=== PATIENT | male | born 1975 | race Caucasian/White ===

== ENCOUNTER 2022-06-24 07:24 | Day surgery (SDC) | payer BC ==
[~2022-06-24 07:24] MED LIST: Dextrose 5%-0.45% NaCl 1,000 ML IV SCH; Sodium Chloride 0.9% 10 ML Syringe FLUSH PRN; Sodium Chloride 0.9% 10 ML Syringe FLUSH SCH
[2022-06-24] MEDS ORDERED: fentaNYL 100 MCG/2 ML SDV IV ONE ×3 (07:25→08:57)
[2022-06-24] MEDS ORDERED: Midazolam 1 MG/ML 2 ML SDV IV ONE ×3 (07:25→08:58)
[2022-06-24] MEDS ORDERED: Midazolam 1 MG/ML 2 ML SDV ONE (08:51)
[2022-06-24] MEDS ORDERED: fentaNYL 100 MCG/2 ML SDV ONE (08:51)
== END 2022-06-24 10:35 | disposition home or self-care (01) ==
LOC: DL.ENDO 07:24
PROVIDERS: ATTEND Internal Medicine Gastroenterology
DX: D64.9 Anemia, unspecified (principal); K44.9 Diaphragmatic hernia without obstruction or gangrene; E66.09 Other obesity due to excess calories; I10 Essential (primary) hypertension; F32.A Depression, unspecified; E83.119 Hemochromatosis, unspecified; K92.2 Gastrointestinal hemorrhage, unspecified; Z88.8 Allergy status to other drugs, medicaments and biological substances; Z98.890 Other specified postprocedural states; Z68.36 Body mass index [BMI] 36.0-36.9, adult
CPT/HCPCS: 87077; J2250; J3010; J7042

== ENCOUNTER 2022-06-28 05:27 | Day surgery (SDC) | payer BC ==
[~2022-06-28 05:27] MED LIST changes: -Dextrose 5%-0.45% NaCl 1,000 ML IV SCH; -Sodium Chloride 0.9% 10 ML Syringe FLUSH PRN
[2022-06-28] MEDS ORDERED: fentaNYL 100 MCG/2 ML SDV IV ONE (05:28)
[2022-06-28] MEDS ORDERED: Midazolam 1 MG/ML 2 ML SDV IV ONE (05:28)
[2022-06-28] MEDS ORDERED: Sodium Chloride 0.9% 10 ML Syringe FLUSH PRN (05:30)
[2022-06-28] MEDS: Dextrose 5%-0.45% NaCl 1,000 ML IV SCH (05:57)
[2022-06-28] MEDS ORDERED: fentaNYL 100 MCG/2 ML SDV ONE (06:09)
[2022-06-28] MEDS ORDERED: Midazolam 1 MG/ML 2 ML SDV ONE (06:09)
[2022-06-28] MEDS: fentaNYL 100 MCG/2 ML SDV IV ONE ×6 (06:31→06:40)
[2022-06-28] MEDS: Midazolam 1 MG/ML 2 ML SDV IV ONE ×6 (06:32→06:35)
[2022-06-28 09:02] VITALS: BP 141/80; PULSE 86
== END 2022-06-28 08:40 | disposition home or self-care (01) ==
LOC: DL.ENDO 05:27
PROVIDERS: ATTEND Internal Medicine Gastroenterology
DX: K57.30 Diverticulosis of large intestine without perforation or abscess without bleeding (principal); K64.8 Other hemorrhoids; D64.9 Anemia, unspecified; E66.09 Other obesity due to excess calories; F32.A Depression, unspecified; I10 Essential (primary) hypertension; F10.20 Alcohol dependence, uncomplicated; F17.200 Nicotine dependence, unspecified, uncomplicated; E83.119 Hemochromatosis, unspecified; Z68.36 Body mass index [BMI] 36.0-36.9, adult; Z98.890 Other specified postprocedural states
CPT/HCPCS: J2250; J3010; J7042

== ENCOUNTER 2023-11-06 13:46 | Emergency (ER) | payer BC ==
[2023-11-06 14:26] LABS: BASOPHILS PERCENT AUTO 0.8 % (0.0-1.0); EOSINOPHILS PERCENT AUTO 0.3 % (1.0-3.0); HEMATOCRIT 43.7 % (40.0-54.0); HEMOGLOBIN 15.7 g/dL (14.0-18.0); LYMPHOCYTES PERCENT AUTO 33.5 % (20.5-50.1); MEAN CORPUSCULAR HEMOGLOBIN 29.6 pg (27.0-34.0); MEAN CORPUSCULAR HGB CONC 35.9 g/dL (33.0-35.0); MEAN CORPUSCULAR VOLUME 82.3 fL (80-100); MONOCYTES PERCENT AUTO 7.6 % (2-8); NEUTROPHILS PERCENT AUTO 57.8 % (42.2-75.2); PLATELET COUNT,PLT 190 10^3/uL (150-450); RED BLOOD CELL COUNT 5.31 10^6/uL (4.6-6.2); WHITE BLOOD CELL COUNT,WBC 6.5 10^3/uL (5.0-10.0)
[2023-11-06 14:46] LABS: INR 1.1 (0.9-1.2); PROTHROMBIN TIME 11.5 SEC (9.0-12.0)
[2023-11-06 14:55] LABS: A/G RATIO 1.3; ALBUMIN 4.5 g/dL (3.4-5.0); ANION GAP 24.7 mEq/L (7-13); BILIRUBIN TOTAL 1.1 mg/dL (0.2-1.0); BUN/CREATININE RATIO 10.8 (No establ ref range); CALCIUM 8.9 mg/dL (8.5-10.1); CREATININE 1.2 mg/dL (0.70-1.30); EST CRCL DRUG DOSING (CG) 78.44 mL/min; MAGNESIUM 1.5 mg/dL (1.8-2.4); POTASSIUM,K 3.7 mmol/L (3.5-5.1); TSH ULTRASENSITIVE 2.18 uIU/mL (0.36-3.74)
[2023-11-06 15:01] LABS: APPEARANCE,URINE CLEAR (CLEAR); BILIRUBIN,URINE NEGATIVE (NEGATIVE); COLOR,URINE DARK YELLOW (YELLOW); GLUCOSE,URINE NEGATIVE (NEGATIVE); KETONES,URINE >=160 (NEGATIVE); LEUKOCYTE ESTERASE,URINE NEGATIVE (NEGATIVE); NITRITE,URINE NEGATIVE (NEGATIVE); OCCULT BLOOD,URINE MODERATE (NEGATIVE); PROTEIN,URINE 100 (NEGATIVE); UROBILINOGEN,URINE 0.2 mg/dL (0.2-1.0)
[2023-11-06 15:02] LABS: AMPHETAMINES,URINE NEGATIVE (NEGATIVE); BARBITURATES,URINE NEGATIVE (NEGATIVE); BENZODIAZEPINE,URINE NEGATIVE (NEGATIVE); MDMA (ECSTASY), URINE NEGATIVE (NEGATIVE); METHADONE,URINE NEGATIVE (NEGATIVE); METHAMPHETAMINES,URINE NEGATIVE (NEGATIVE); OPIATES,URINE NEGATIVE (NEGATIVE); OXYCODONE,URINE NEGATIVE (NEGATIVE); PHENCYCLIDINE,URINE NEGATIVE (NEGATIVE); TCA,URINE NEGATIVE (NEGATIVE)
[2023-11-06] MEDS: Magnesium Oxide 400 MG Tab PO ONE (15:16)
[2023-11-06 15:20] LABS: EPITHELIAL CELLS,URINE RARE /HPF (NOT SEEN); FINE GRANULAR CASTS,URINE FEW /LPF (NOT SEEN)
[2023-11-06] MEDS: Losartan 25 MG Tab PO ONE (15:20)
[2023-11-06 15:21] LABS: AMORPHOUS SEDIMENT,URINE FEW /HPF (NOT SEEN); BACTERIA,URINE RARE /HPF (0-FEW/HPF)
[2023-11-06 15:22] LABS: MUCUS,URINE FEW /LPF (NOT SEEN); RBC,URINE 0-5 /HPF (0-5); WBC,URINE 0-5 /HPF (0-5/HPF)
[2023-11-06] MEDS: Nicotine 21 MG/24 Hr Patch TRDERM ONE (15:39)
== END 2023-11-06 16:30 | disposition home or self-care (01) ==
LOC: DL.ED 13:46
DX: F10.129 Alcohol abuse with intoxication, unspecified (principal); I10 Essential (primary) hypertension; K21.9 Gastro-esophageal reflux disease without esophagitis; E66.9 Obesity, unspecified; Z79.899 Other long term (current) drug therapy; Z88.8 Allergy status to other drugs, medicaments and biological substances; Y90.8 Blood alcohol level of 240 mg/100 ml or more
CPT/HCPCS: 36415; 80053; 80143; 80179; 80305; 80307; 81001; 83735; 84443; 85025; 85610; 87635; 96372; 99284; A9270; J3360; U0002

== ENCOUNTER 2024-01-02 13:24 | Emergency (ER) | payer BC, OTHER ==
[2024-01-02 13:45] LABS: APPEARANCE,URINE CLEAR (CLEAR); BILIRUBIN,URINE NEGATIVE (NEGATIVE); COLOR,URINE YELLOW (YELLOW); GLUCOSE,URINE NEGATIVE (NEGATIVE); KETONES,URINE NEGATIVE (NEGATIVE); LEUKOCYTE ESTERASE,URINE NEGATIVE (NEGATIVE); NITRITE,URINE NEGATIVE (NEGATIVE); OCCULT BLOOD,URINE TRACE-INTACT (NEGATIVE); PH,URINE 6.5 (5.0-9.0); PROTEIN,URINE NEGATIVE (NEGATIVE); UROBILINOGEN,URINE 0.2 mg/dL (0.2-1.0)
[2024-01-02 13:50] LABS: AMPHETAMINES,URINE NEGATIVE (NEGATIVE); BARBITURATES,URINE NEGATIVE (NEGATIVE); BENZODIAZEPINE,URINE NEGATIVE (NEGATIVE); MDMA (ECSTASY), URINE NEGATIVE (NEGATIVE); METHADONE,URINE NEGATIVE (NEGATIVE); METHAMPHETAMINES,URINE NEGATIVE (NEGATIVE); OPIATES,URINE NEGATIVE (NEGATIVE); OXYCODONE,URINE NEGATIVE (NEGATIVE); PHENCYCLIDINE,URINE NEGATIVE (NEGATIVE); TCA,URINE NEGATIVE (NEGATIVE)
[2024-01-02 13:55] LABS: AMORPHOUS SEDIMENT,URINE RARE /HPF (NOT SEEN); BACTERIA,URINE RARE /HPF (0-FEW/HPF); EPITHELIAL CELLS,URINE NOT SEEN /HPF (NOT SEEN); MUCUS,URINE RARE /LPF (NOT SEEN); RBC,URINE 0-5 /HPF (0-5); WBC,URINE 0-5 /HPF (0-5/HPF)
[2024-01-02 14:26] LABS: BASOPHILS PERCENT AUTO 0.6 % (0.0-1.0); HEMATOCRIT 42.1 % (40.0-54.0); HEMOGLOBIN 14.6 g/dL (14.0-18.0); LYMPHOCYTES PERCENT AUTO 37.6 % (20.5-50.1); MEAN CORPUSCULAR HEMOGLOBIN 30.7 pg (27.0-34.0); MEAN CORPUSCULAR HGB CONC 34.7 g/dL (33.0-35.0); MEAN CORPUSCULAR VOLUME 88.4 fL (80-100); MONOCYTES PERCENT AUTO 15.4 % (2-8); NEUTROPHILS PERCENT AUTO 45.4 % (42.2-75.2); PLATELET COUNT,PLT 80 10^3/uL (150-450); RED BLOOD CELL COUNT 4.76 10^6/uL (4.6-6.2); WHITE BLOOD CELL COUNT,WBC 3.1 10^3/uL (5.0-10.0)
[2024-01-02 14:55] LABS: A/G RATIO 1.1; ALBUMIN 4.3 g/dL (3.4-5.0); ANION GAP 14.8 mEq/L (7-13); BILIRUBIN TOTAL 1.2 mg/dL (0.2-1.0); CALCIUM 9.7 mg/dL (8.5-10.1); CREATININE 0.83 mg/dL (0.70-1.30); EST CRCL DRUG DOSING (CG) 113.4 mL/min; MAGNESIUM 1.3 mg/dL (1.8-2.4); POTASSIUM,K 3.8 mmol/L (3.5-5.1); PROTEIN TOTAL,TP 8.1 g/dL (6.4-8.2)
[2024-01-02 15:06] LABS: INR 1.1 (0.9-1.2); PROTHROMBIN TIME 11.7 SEC (9.0-12.0)
[2024-01-02] MEDS ORDERED: Magnesium Oxide 400 MG Tab ONE (15:22)
[2024-01-02] MEDS: Magnesium Oxide 400 MG Tab PO ONE (15:23)
== END 2024-01-02 16:11 | disposition left against medical advice (07) ==
LOC: DL.ED 13:24
DX: F10.129 Alcohol abuse with intoxication, unspecified (principal); I10 Essential (primary) hypertension; K21.9 Gastro-esophageal reflux disease without esophagitis; E66.9 Obesity, unspecified; F17.210 Nicotine dependence, cigarettes, uncomplicated; Z88.8 Allergy status to other drugs, medicaments and biological substances; Z79.899 Other long term (current) drug therapy; Z68.41 Body mass index [BMI] 40.0-44.9, adult
CPT/HCPCS: 36415; 80053; 80143; 80179; 80305-QW; 80307; 81001; 83735; 85025; 85610; 99283; A9270-GY

== ENCOUNTER 2024-01-14 14:13 | Inpatient (IN) | payer MEDICAID ==
[2024-01-14 15:35] LABS: BASOPHILS PERCENT AUTO 1.7 % (0.0-1.0); HEMATOCRIT 43.5 % (40.0-54.0); HEMOGLOBIN 14.7 g/dL (14.0-18.0); LYMPHOCYTES PERCENT AUTO 43.2 % (20.5-50.1); MEAN CORPUSCULAR HEMOGLOBIN 30.4 pg (27.0-34.0); MEAN CORPUSCULAR HGB CONC 33.8 g/dL (33.0-35.0); MEAN CORPUSCULAR VOLUME 90.1 fL (80-100); MONOCYTES PERCENT AUTO 13.5 % (2-8); NEUTROPHILS PERCENT AUTO 40.6 % (42.2-75.2); PLATELET COUNT,PLT 122 10^3/uL (150-450); RED BLOOD CELL COUNT 4.83 10^6/uL (4.6-6.2)
[2024-01-14 15:40] LABS: APPEARANCE,URINE CLEAR (CLEAR); BILIRUBIN,URINE NEGATIVE (NEGATIVE); COLOR,URINE YELLOW (YELLOW); GLUCOSE,URINE NEGATIVE (NEGATIVE); KETONES,URINE NEGATIVE (NEGATIVE); LEUKOCYTE ESTERASE,URINE NEGATIVE (NEGATIVE); NITRITE,URINE NEGATIVE (NEGATIVE); OCCULT BLOOD,URINE TRACE-INTACT (NEGATIVE); PH,URINE 5.5 (5.0-9.0); PROTEIN,URINE 30 (NEGATIVE)
[2024-01-14 15:48] LABS: AMORPHOUS SEDIMENT,URINE RARE /HPF (NOT SEEN); BACTERIA,URINE RARE /HPF (0-FEW/HPF); EPITHELIAL CELLS,URINE NOT SEEN /HPF (NOT SEEN); MUCUS,URINE RARE /LPF (NOT SEEN); RBC,URINE 0-5 /HPF (0-5); WBC,URINE 0-5 /HPF (0-5/HPF)
[2024-01-14 15:51] LABS: AMPHETAMINES,URINE NEGATIVE (NEGATIVE); BARBITURATES,URINE NEGATIVE (NEGATIVE); BENZODIAZEPINE,URINE NEGATIVE (NEGATIVE); MDMA (ECSTASY), URINE NEGATIVE (NEGATIVE); METHADONE,URINE NEGATIVE (NEGATIVE); METHAMPHETAMINES,URINE NEGATIVE (NEGATIVE); OPIATES,URINE NEGATIVE (NEGATIVE); OXYCODONE,URINE NEGATIVE (NEGATIVE); PHENCYCLIDINE,URINE NEGATIVE (NEGATIVE); TCA,URINE NEGATIVE (NEGATIVE)
[2024-01-14 15:56] LABS: INR 1.1 (0.9-1.2); PROTHROMBIN TIME 11.5 SEC (9.0-12.0); PTT,PARTIAL THROMBOPLSTIN TIME 25.6 SEC (22.0-34.0)
[2024-01-14 15:59] LABS: A/G RATIO 1.1; ALBUMIN 4.1 g/dL (3.4-5.0); ANION GAP 17.7 mEq/L (7-13); BUN/CREATININE RATIO 11.2 (No establ ref range); CALCIUM 9.3 mg/dL (8.5-10.1); CREATININE 0.89 mg/dL (0.70-1.30); EST CRCL DRUG DOSING (CG) 108.99 mL/min; MAGNESIUM 1.7 mg/dL (1.8-2.4); POTASSIUM,K 4.7 mmol/L (3.5-5.1)
[2024-01-14] MEDS: Thiamine 200 MG/2 ML MDV IVPUSH ONE (16:37)
[2024-01-14] MEDS: LORazepam 2 MG/ML SDV IVPUSH ONE ×2 (16:47→19:40)
[2024-01-14] MEDS: Magnesium Sulfate/Water 2 GM in Premix Bag 1 BAG IV ONE (16:48)
[2024-01-14] MEDS: Sodium Chloride 0.9% 1,000 ML IV ONE (16:48)
[2024-01-14] MEDS: Sodium Chloride 0.9% 10 ML Syringe FLUSH PRN (16:52)
[2024-01-14] MEDS ORDERED: Docusate Sodium 100 MG Cap PO PRN (17:39)
[2024-01-14] MEDS: Enoxaparin 40 MG/0.4 ML Syringe SUBCUT SCH (18:02)
[2024-01-14] MEDS: hydrALAZINE 20 MG/ML SDV IVPUSH PRN (18:15)
[2024-01-14] MEDS: MVI, Adult with Vitamin K 10 ML, Folic Acid 1 MG, Thiamine 100 MG in Lactated Ringers 1... IV SCH ×2 (19:32→19:43)
[2024-01-14] MEDS: Ziprasidone Mesylate 20 MG Vial IM ONE (19:42)
[2024-01-14] MEDS: Pantoprazole 40 MG Vial IVPUSH SCH (20:04)
[2024-01-14] MEDS: Ziprasidone Mesylate 20 MG Vial ONE (20:05)
[2024-01-14] MEDS: LORazepam 2 MG/ML SDV ONE (20:05)
[2024-01-14] MEDS: Acetaminophen 500 MG Tab PO PRN (20:05)
[2024-01-15] MEDS: Ondansetron 4 MG/2 ML SDV IVPUSH PRN (01:13)
[2024-01-15] MEDS: LORazepam 2 MG/ML SDV IVPUSH PRN ×3 (04:53→20:02)
[2024-01-15] MEDS: LORazepam 2 MG/ML SDV ONE (04:55)
[2024-01-15 06:35] LABS: BASOPHILS PERCENT AUTO 0.3 % (0.0-1.0); EOSINOPHILS PERCENT AUTO 0.3 % (1.0-3.0); HEMOGLOBIN 13.2 g/dL (14.0-18.0); LYMPHOCYTES PERCENT AUTO 22.9 % (20.5-50.1); MEAN CORPUSCULAR HEMOGLOBIN 29.9 pg (27.0-34.0); MEAN CORPUSCULAR VOLUME 90.5 fL (80-100); MONOCYTES PERCENT AUTO 18.5 % (2-8); PLATELET COUNT,PLT 91 10^3/uL (150-450); RED BLOOD CELL COUNT 4.42 10^6/uL (4.6-6.2); WHITE BLOOD CELL COUNT,WBC 3.1 10^3/uL (5.0-10.0)
[2024-01-15 06:56] LABS: A/G RATIO 1.1; ALBUMIN 3.8 g/dL (3.4-5.0); ANION GAP 15.9 mEq/L (7-13); BILIRUBIN TOTAL 1.4 mg/dL (0.2-1.0); BUN/CREATININE RATIO 12.7 (No establ ref range); CALCIUM 8.8 mg/dL (8.5-10.1); CREATININE 0.79 mg/dL (0.70-1.30); EST CRCL DRUG DOSING (CG) 122.78 mL/min; POTASSIUM,K 3.9 mmol/L (3.5-5.1); PROTEIN TOTAL,TP 7.2 g/dL (6.4-8.2)
[2024-01-15] MEDS ORDERED: hydrALAZINE 20 MG/ML SDV IVPUSH PRN (09:16)
[2024-01-15] MEDS: Losartan 50 MG Tab PO SCH (10:01)
[2024-01-15] MEDS: Famotidine 20 MG Tab PO SCH (10:02)
[2024-01-15] MEDS: Nicotine 7 MG/24 Hr Patch TRDERM SCH (12:26)
[2024-01-15] MEDS: Ziprasidone Mesylate 20 MG Vial IM PRN (13:40)
[2024-01-15] MEDS: traZODone 50 MG Tab PO SCH (20:03)
[2024-01-15] MEDS: Check Patch TRDERM SCH (21:57)
[2024-01-16 06:10] LABS: BASOPHILS PERCENT AUTO 0.3 % (0.0-1.0); EOSINOPHILS PERCENT AUTO 0.3 % (1.0-3.0); HEMATOCRIT 42.5 % (40.0-54.0); HEMOGLOBIN 14.6 g/dL (14.0-18.0); LYMPHOCYTES PERCENT AUTO 38.6 % (20.5-50.1); MEAN CORPUSCULAR HEMOGLOBIN 30.5 pg (27.0-34.0); MEAN CORPUSCULAR HGB CONC 34.4 g/dL (33.0-35.0); MEAN CORPUSCULAR VOLUME 88.7 fL (80-100); MONOCYTES PERCENT AUTO 19.1 % (2-8); NEUTROPHILS PERCENT AUTO 41.7 % (42.2-75.2); PLATELET COUNT,PLT 77 10^3/uL (150-450); RED BLOOD CELL COUNT 4.79 10^6/uL (4.6-6.2)
[2024-01-16 06:31] LABS: A/G RATIO 1.1; ALBUMIN 4.1 g/dL (3.4-5.0); ANION GAP 19.2 mEq/L (7-13); BILIRUBIN TOTAL 2.2 mg/dL (0.2-1.0); BUN/CREATININE RATIO 10.1 (No establ ref range); CALCIUM 9.7 mg/dL (8.5-10.1); CREATININE 0.89 mg/dL (0.70-1.30); EST CRCL DRUG DOSING (CG) 108.99 mL/min; POTASSIUM,K 4.2 mmol/L (3.5-5.1); PROTEIN TOTAL,TP 7.9 g/dL (6.4-8.2)
[2024-01-16] MEDS: Escitalopram 10 MG Tab PO SCH (10:37)
[2024-01-16] MEDS: hydrOXYzine HCl 25 MG Tab PO PRN (11:51)
[2024-01-16] MEDS: Gabapentin 100 MG Cap PO SCH (12:31)
[2024-01-16] MEDS ORDERED: LORazepam 2 MG/ML SDV IVPUSH PRN (12:53)
[2024-01-16] MEDS: chlordiazePOXIDE 10 MG Cap PO SCH (13:03)
[2024-01-16] MEDS: LORazepam 2 MG/ML SDV IVPUSH PRN (17:18)
[2024-01-17 06:33] LABS: BASOPHILS PERCENT AUTO 0.7 % (0.0-1.0); EOSINOPHILS PERCENT AUTO 1.5 % (1.0-3.0); HEMATOCRIT 41.5 % (40.0-54.0); HEMOGLOBIN 13.9 g/dL (14.0-18.0); LYMPHOCYTES PERCENT AUTO 28.6 % (20.5-50.1); MEAN CORPUSCULAR HEMOGLOBIN 30.3 pg (27.0-34.0); MEAN CORPUSCULAR HGB CONC 33.5 g/dL (33.0-35.0); MEAN CORPUSCULAR VOLUME 90.4 fL (80-100); MONOCYTES PERCENT AUTO 19.4 % (2-8); NEUTROPHILS PERCENT AUTO 49.8 % (42.2-75.2); PLATELET COUNT,PLT 89 10^3/uL (150-450); RED BLOOD CELL COUNT 4.59 10^6/uL (4.6-6.2); WHITE BLOOD CELL COUNT,WBC 2.7 10^3/uL (5.0-10.0)
[2024-01-17 07:00] LABS: A/G RATIO 1.1; ALBUMIN 3.7 g/dL (3.4-5.0); ANION GAP 15.9 mEq/L (7-13); BILIRUBIN TOTAL 1.8 mg/dL (0.2-1.0); BUN/CREATININE RATIO 14.5 (No establ ref range); CALCIUM 9.5 mg/dL (8.5-10.1); CREATININE 0.83 mg/dL (0.70-1.30); EST CRCL DRUG DOSING (CG) 116.87 mL/min; POTASSIUM,K 3.9 mmol/L (3.5-5.1); PROTEIN TOTAL,TP 7.2 g/dL (6.4-8.2)
[2024-01-17] MEDS: Gabapentin 300 MG Cap PO SCH (08:50)
[2024-01-18 06:25] LABS: BASOPHILS PERCENT AUTO 0.6 % (0.0-1.0); EOSINOPHILS PERCENT AUTO 1.5 % (1.0-3.0); HEMATOCRIT 40.2 % (40.0-54.0); HEMOGLOBIN 13.4 g/dL (14.0-18.0); MEAN CORPUSCULAR HEMOGLOBIN 30.4 pg (27.0-34.0); MEAN CORPUSCULAR HGB CONC 33.3 g/dL (33.0-35.0); MEAN CORPUSCULAR VOLUME 91.2 fL (80-100); MONOCYTES PERCENT AUTO 22.4 % (2-8); NEUTROPHILS PERCENT AUTO 49.5 % (42.2-75.2); PLATELET COUNT,PLT 86 10^3/uL (150-450); RED BLOOD CELL COUNT 4.41 10^6/uL (4.6-6.2); WHITE BLOOD CELL COUNT,WBC 3.3 10^3/uL (5.0-10.0)
[2024-01-18 06:48] LABS: A/G RATIO 1.1; ALBUMIN 3.5 g/dL (3.4-5.0); ANION GAP 13.8 mEq/L (7-13); BILIRUBIN TOTAL 1.6 mg/dL (0.2-1.0); BUN/CREATININE RATIO 20.7 (No establ ref range); CALCIUM 9.3 mg/dL (8.5-10.1); CREATININE 0.87 mg/dL (0.70-1.30); EST CRCL DRUG DOSING (CG) 111.49 mL/min; POTASSIUM,K 3.8 mmol/L (3.5-5.1); PROTEIN TOTAL,TP 6.8 g/dL (6.4-8.2)
[2024-01-18] MEDS: Nicotine 21 MG/24 Hr Patch TRDERM SCH (09:16)
[2024-01-19 06:23] LABS: BASOPHILS PERCENT AUTO 0.7 % (0.0-1.0); EOSINOPHILS PERCENT AUTO 1.4 % (1.0-3.0); HEMOGLOBIN 13.5 g/dL (14.0-18.0); LYMPHOCYTES PERCENT AUTO 28.4 % (20.5-50.1); MEAN CORPUSCULAR HEMOGLOBIN 30.2 pg (27.0-34.0); MEAN CORPUSCULAR HGB CONC 32.9 g/dL (33.0-35.0); MEAN CORPUSCULAR VOLUME 91.7 fL (80-100); MONOCYTES PERCENT AUTO 23.9 % (2-8); NEUTROPHILS PERCENT AUTO 45.6 % (42.2-75.2); PLATELET COUNT,PLT 90 10^3/uL (150-450); RED BLOOD CELL COUNT 4.47 10^6/uL (4.6-6.2); WHITE BLOOD CELL COUNT,WBC 2.9 10^3/uL (5.0-10.0)
[2024-01-19 06:43] LABS: ALBUMIN 3.6 g/dL (3.4-5.0); ANION GAP 12.7 mEq/L (7-13); BILIRUBIN TOTAL 1.4 mg/dL (0.2-1.0); BUN/CREATININE RATIO 18.3 (No establ ref range); CALCIUM 9.4 mg/dL (8.5-10.1); CREATININE 0.82 mg/dL (0.70-1.30); EST CRCL DRUG DOSING (CG) 118.29 mL/min; POTASSIUM,K 4.7 mmol/L (3.5-5.1); PROTEIN TOTAL,TP 7.2 g/dL (6.4-8.2)
[2024-01-20 06:22] LABS: HEMATOCRIT 41.6 % (40.0-54.0); HEMOGLOBIN 13.9 g/dL (14.0-18.0); MEAN CORPUSCULAR HEMOGLOBIN 30.8 pg (27.0-34.0); MEAN CORPUSCULAR HGB CONC 33.4 g/dL (33.0-35.0); PLATELET COUNT,PLT 95 10^3/uL (150-450); RED BLOOD CELL COUNT 4.52 10^6/uL (4.6-6.2); WHITE BLOOD CELL COUNT,WBC 3.2 10^3/uL (5.0-10.0)
[2024-01-20 06:27] LABS: BASOPHILS PERCENT AUTO 0.6 % (0.0-1.0); EOSINOPHILS PERCENT AUTO 2.5 % (1.0-3.0); LYMPHOCYTES PERCENT AUTO 26.2 % (20.5-50.1); MONOCYTES PERCENT AUTO 24.3 % (2-8); NEUTROPHILS PERCENT AUTO 46.4 % (42.2-75.2)
[2024-01-20 06:45] LABS: ALBUMIN 3.6 g/dL (3.4-5.0); ANION GAP 13.8 mEq/L (7-13); BILIRUBIN TOTAL 1.2 mg/dL (0.2-1.0); BUN/CREATININE RATIO 18.4 (No establ ref range); CALCIUM 9.1 mg/dL (8.5-10.1); CREATININE 0.87 mg/dL (0.70-1.30); EST CRCL DRUG DOSING (CG) 111.49 mL/min; POTASSIUM,K 3.8 mmol/L (3.5-5.1); PROTEIN TOTAL,TP 7.1 g/dL (6.4-8.2)
[2024-01-21] MEDS ORDERED: Omeprazole 20 MG Cap.CR PO SCH (10:30)
[2024-01-21] MEDS: hydrOXYzine HCl 25 MG Tab PO SCH (21:07)
[2024-01-22] MEDS: Omeprazole 20 MG Cap.CR PO SCH (06:07)
== END 2024-01-22 10:40 | disposition home or self-care (01) | DRG 897 ==
LOC: DL.ED 14:13 → DL.MS 16:35 → DL.ED 17:09
PROVIDERS: ADMIT Internal Medicine; ATTEND Internal Medicine
DX: F10.130 Alcohol abuse with withdrawal, uncomplicated (principal); I10 Essential (primary) hypertension; Z68.39 Body mass index [BMI] 39.0-39.9, adult; Z98.52 Vasectomy status; H54.7 Unspecified visual loss; F10.120 Alcohol abuse with intoxication, uncomplicated; E66.9 Obesity, unspecified; F32.A Depression, unspecified; K21.9 Gastro-esophageal reflux disease without esophagitis; F41.9 Anxiety disorder, unspecified; D64.9 Anemia, unspecified; M54.50 Low back pain, unspecified; M25.511 Pain in right shoulder; Z88.8 Allergy status to other drugs, medicaments and biological substances; Z79.899 Other long term (current) drug therapy; Z98.890 Other specified postprocedural states
CPT/HCPCS: 36415; 71046; 80053; 80143; 80179; 80305-QW; 80307; 81001; 82150; 83690; 83735; 84443; 85025; 85610; 85730; 93005; 93010; 99284; 99285; A9270-GY; J0360; J1650; J2060; J2405; J2470; J3411; J3475; J3486; J3490; J7030; J7120

== ENCOUNTER 2024-02-05 20:50 | Emergency (ER) | payer MEDICAID ==
[2024-02-05] MEDS ORDERED: Sodium Chloride 0.9% 10 ML Syringe FLUSH PRN (20:59)
[2024-02-05 21:16] LABS: BASOPHILS PERCENT AUTO 0.5 % (0.0-1.0); EOSINOPHILS PERCENT AUTO 0.9 % (1.0-3.0); HEMATOCRIT 45.1 % (40.0-54.0); HEMOGLOBIN 15.5 g/dL (14.0-18.0); MEAN CORPUSCULAR HEMOGLOBIN 30.1 pg (27.0-34.0); MEAN CORPUSCULAR HGB CONC 34.4 g/dL (33.0-35.0); MEAN CORPUSCULAR VOLUME 87.6 fL (80-100); MONOCYTES PERCENT AUTO 11.5 % (2-8); NEUTROPHILS PERCENT AUTO 45.1 % (42.2-75.2); PLATELET COUNT,PLT 221 10^3/uL (150-450); RED BLOOD CELL COUNT 5.15 10^6/uL (4.6-6.2); WHITE BLOOD CELL COUNT,WBC 7.4 10^3/uL (5.0-10.0)
[2024-02-05] MEDS: MVI, Adult with Vitamin K 10 ML, Folic Acid 1 MG, Thiamine 100 MG in Lactated Ringers 1... IV ONE (21:24)
[2024-02-05 21:35] LABS: A/G RATIO 1.1; ALANINE AMINOTRANSFERASE,ALT 64 U/L (16-63); ALBUMIN 4.2 g/dL (3.4-5.0); ALKALINE PHOSPHATASE 76 U/L (46-116); ANION GAP 15.6 mEq/L (7-13); ASPARTATE AMNIOTRANSFERASE,AST 110 U/L (15-37); BILIRUBIN TOTAL 0.7 mg/dL (0.2-1.0); BLOOD UREA NITROGEN,BUN 8 mg/dL (7-18); BUN/CREATININE RATIO 7.5 (No establ ref range); CALCIUM 9.4 mg/dL (8.5-10.1); CARBON DIOXIDE,CO2 26 mmol/L (21-32); CHLORIDE,CL 104 mmol/L (98-107); CREATININE 1.07 mg/dL (0.70-1.30); GLUCOSE RANDOM 131 mg/dL (70-99); MAGNESIUM 1.7 mg/dL (1.8-2.4); POTASSIUM,K 3.6 mmol/L (3.5-5.1); PROTEIN TOTAL,TP 8.1 g/dL (6.4-8.2); SODIUM,NA 142 mmol/L (136-145)
[2024-02-05 21:47] LABS: ESTIMATED GFR 85 mL/min (>=60); ETHANOL BLOOD MEDICAL 340 mg/dL (0)
== END 2024-02-05 22:31 | disposition home or self-care (01) ==
LOC: DL.ED 20:50
DX: F10.29 Alcohol dependence with unspecified alcohol-induced disorder (principal); I10 Essential (primary) hypertension; K21.9 Gastro-esophageal reflux disease without esophagitis; E66.9 Obesity, unspecified; Z79.899 Other long term (current) drug therapy; Z88.8 Allergy status to other drugs, medicaments and biological substances
CPT/HCPCS: 36415; 80053; 80307; 83735; 85025; 96365; 99284; 99284-25; J3411; J3490; J7120

== ENCOUNTER 2024-03-27 00:37 | Emergency (ER) | payer MEDICAID ==
[2024-03-27 01:38] LABS: BASOPHILS PERCENT AUTO 0.4 % (0.0-1.0); EOSINOPHILS PERCENT AUTO 0.2 % (1.0-3.0); HEMATOCRIT 39.8 % (40.0-54.0); LYMPHOCYTES PERCENT AUTO 30.8 % (20.5-50.1); MEAN CORPUSCULAR HEMOGLOBIN 30.4 pg (27.0-34.0); MEAN CORPUSCULAR HGB CONC 35.2 g/dL (33.0-35.0); MEAN CORPUSCULAR VOLUME 86.5 fL (80-100); MONOCYTES PERCENT AUTO 8.9 % (2-8); NEUTROPHILS PERCENT AUTO 59.7 % (42.2-75.2); PLATELET COUNT,PLT 109 10^3/uL (150-450); WHITE BLOOD CELL COUNT,WBC 5.1 10^3/uL (5.0-10.0)
[2024-03-27] MEDS: MVI, Adult with Vitamin K 10 ML, Folic Acid 1 MG, Thiamine 100 MG in Lactated Ringers 1... IV ONE (01:45)
[2024-03-27] MEDS: Ondansetron 4 MG/2 ML SDV IVPUSH ONE (01:46)
[2024-03-27] MEDS: Famotidine 20 MG/2 ML SDV IVPUSH ONE (01:46)
[2024-03-27 01:59] LABS: A/G RATIO 1.3; ALBUMIN 4.4 g/dL (3.4-5.0); ANION GAP 31.5 mEq/L (7-13); BILIRUBIN TOTAL 1.9 mg/dL (0.2-1.0); CALCIUM 8.7 mg/dL (8.5-10.1); POTASSIUM,K 3.5 mmol/L (3.5-5.1); PROTEIN TOTAL,TP 7.7 g/dL (6.4-8.2)
[2024-03-27 02:10] LABS: CREATININE 4.35 mg/dL (0.70-1.30); EST CRCL DRUG DOSING (CG) 21.4 mL/min
[2024-03-27 02:24] LABS: INR 1.1 (0.9-1.2)
[2024-03-27] MEDS: Sodium Chloride 0.9% 1,000 ML IV ONE (03:06)
== END 2024-03-27 04:39 ==
LOC: DL.ED 00:37
DX: F10.129 Alcohol abuse with intoxication, unspecified (principal); E86.0 Dehydration; N17.9 Acute kidney failure, unspecified; R87.1 Abnormal level of hormones in specimens from female genital organs; I10 Essential (primary) hypertension; K21.9 Gastro-esophageal reflux disease without esophagitis; E66.9 Obesity, unspecified; F17.290 Nicotine dependence, other tobacco product, uncomplicated; Z88.8 Allergy status to other drugs, medicaments and biological substances; Z79.899 Other long term (current) drug therapy; Z68.41 Body mass index [BMI] 40.0-44.9, adult
CPT/HCPCS: 36415; 80053; 80307; 82947; 83690; 85025; 85610; 93005; 96361; 96365; 96375; 99285; J2405; J3411; J3490; J7030; J7120

== ENCOUNTER 2024-04-16 13:19 | Observation (INO) | payer MEDICAID ==
[2024-04-16] MEDS ORDERED: Sodium Chloride 0.9% 10 ML Syringe FLUSH PRN (13:27)
[2024-04-16 13:38] LABS: EOSINOPHILS PERCENT AUTO 0.2 % (1.0-3.0); HEMATOCRIT 43.3 % (40.0-54.0); HEMOGLOBIN 15.2 g/dL (14.0-18.0); LYMPHOCYTES PERCENT AUTO 31.5 % (20.5-50.1); MEAN CORPUSCULAR HEMOGLOBIN 31.1 pg (27.0-34.0); MEAN CORPUSCULAR HGB CONC 35.1 g/dL (33.0-35.0); MEAN CORPUSCULAR VOLUME 88.7 fL (80-100); MONOCYTES PERCENT AUTO 10.3 % (2-8); PLATELET COUNT,PLT 162 10^3/uL (150-450); RED BLOOD CELL COUNT 4.88 10^6/uL (4.6-6.2); WHITE BLOOD CELL COUNT,WBC 6.1 10^3/uL (5.0-10.0)
[2024-04-16] MEDS: PHENobarbitaL sodium 260 MG in Sodium Chloride 0.9% 100 ML IV ONE (13:51)
[2024-04-16 13:55] LABS: A/G RATIO 1.2; ALBUMIN 4.8 g/dL (3.4-5.0); ANION GAP 30.6 mEq/L (7-13); BILIRUBIN TOTAL 1.7 mg/dL (0.2-1.0); BUN/CREATININE RATIO 11.4 (No establ ref range); CALCIUM 9.2 mg/dL (8.5-10.1); CREATININE 1.14 mg/dL (0.70-1.30); EST CRCL DRUG DOSING (CG) 89.13 mL/min; POTASSIUM,K 3.6 mmol/L (3.5-5.1); PROTEIN TOTAL,TP 8.9 g/dL (6.4-8.2)
[2024-04-16] MEDS: Lactated Ringers 1,000 ML IV ONE (14:23)
[2024-04-16] MEDS: PHENobarbital Sodium 65 MG/ML SDV IVPUSH ONE (15:13)
[2024-04-16] MEDS: Propranolol 20 MG Tab PO ONE ×2 (15:23→15:27)
[2024-04-16] MEDS ORDERED: PHENobarbitaL sodium 260 MG in Sodium Chloride 0.9% 100 ML IV PRN (15:24)
[2024-04-16] MEDS ORDERED: PHENobarbital 64.8 MG Tab PO PRN (15:24)
[2024-04-16] MEDS ORDERED: Bisacodyl 5 MG Tab PO PRN (15:30)
[2024-04-16] MEDS ORDERED: Polyethylene Glycol 3350 Powder 17 GM Packet PO PRN (15:30)
[2024-04-16] MEDS ORDERED: Albuterol/Ipratropium 3.0-0.5 MG/3 ML Neb Soln NEB PRN (15:30)
[2024-04-16] MEDS ORDERED: Magnesium Hydroxide 400 MG/5 ML Susp 30 ML Cup PO PRN (15:30)
[2024-04-16] MEDS: Pantoprazole 40 MG Vial IVPUSH ONE (16:30)
[2024-04-16] MEDS: MVI, Adult with Vitamin K 10 ML, Folic Acid 1 MG, Thiamine 100 MG in Lactated Ringers 1... IV ONE (16:30)
[2024-04-16] MEDS: Ondansetron 4 MG/2 ML SDV IVPUSH PRN (16:50)
[2024-04-16] MEDS: Nicotine 21 MG/24 Hr Patch TRDERM SCH (16:50)
[2024-04-16] MEDS: hydrOXYzine HCl 25 MG Tab PO PRN (20:11)
[2024-04-16] MEDS: Losartan 50 MG Tab PO SCH (20:11)
[2024-04-16] MEDS: Gabapentin 400 MG Cap PO SCH (20:11)
[2024-04-16] MEDS: Temazepam 15 MG Cap PO PRN (20:11)
[2024-04-16] MEDS: Metoclopramide 10 MG/2 ML SDV IVPUSH PRN (20:11)
[2024-04-17] MEDS: PHENobarbital Sodium 65 MG/ML SDV IVPUSH PRN (05:05)
[2024-04-17 06:16] LABS: EOSINOPHILS PERCENT AUTO 0.2 % (1.0-3.0); HEMATOCRIT 38.3 % (40.0-54.0); HEMOGLOBIN 13.1 g/dL (14.0-18.0); LYMPHOCYTES PERCENT AUTO 28.2 % (20.5-50.1); MEAN CORPUSCULAR HGB CONC 34.2 g/dL (33.0-35.0); MEAN CORPUSCULAR VOLUME 90.5 fL (80-100); MONOCYTES PERCENT AUTO 13.6 % (2-8); PLATELET COUNT,PLT 117 10^3/uL (150-450); RED BLOOD CELL COUNT 4.23 10^6/uL (4.6-6.2); WHITE BLOOD CELL COUNT,WBC 4.8 10^3/uL (5.0-10.0)
[2024-04-17 06:45] LABS: A/G RATIO 1.2; ALANINE AMINOTRANSFERASE,ALT 57 U/L (16-63); ALBUMIN 4.2 g/dL (3.4-5.0); ALKALINE PHOSPHATASE 58 U/L (46-116); ANION GAP 19.3 mEq/L (7-13); ASPARTATE AMNIOTRANSFERASE,AST 108 U/L (15-37); BILIRUBIN TOTAL 2.7 mg/dL (0.2-1.0); BLOOD UREA NITROGEN,BUN 15 mg/dL (7-18); BUN/CREATININE RATIO 13.6 (No establ ref range); CALCIUM 8.8 mg/dL (8.5-10.1); CARBON DIOXIDE,CO2 26 mmol/L (21-32); CHLORIDE,CL 95 mmol/L (98-107); EST CRCL DRUG DOSING (CG) 84.62 mL/min; ESTIMATED GFR 81 mL/min (>=60); ETHANOL BLOOD MEDICAL < 3 mg/dL (0); GLUCOSE RANDOM 103 mg/dL (70-99); MAGNESIUM 1.5 mg/dL (1.8-2.4); POTASSIUM,K 4.3 mmol/L (3.5-5.1); PROTEIN TOTAL,TP 7.8 g/dL (6.4-8.2); SODIUM,NA 136 mmol/L (136-145)
[2024-04-17] MEDS: PHENobarbital 64.8 MG Tab PO PRN ×2 (08:14→12:51)
[2024-04-17] MEDS: Magnesium Sulfate/Water Premix 2 GM in Premix Bag 1 BAG IV ONE (08:14)
[2024-04-17] MEDS: amLODIPine 5 MG Tab PO SCH (08:15)
[2024-04-17] MEDS: Remove Patch - NICOTINE TRDERM SCH (08:16)
[2024-04-17] MEDS: Chlorthalidone 25 MG Tab PO SCH (17:31)
[2024-04-18] MEDS ORDERED: Check NICOTINE Patch TRDERM SCH (21:00)
== END 2024-04-18 07:35 | disposition home or self-care (01) ==
LOC: DL.ED 13:19 → DL.MS 15:12
PROVIDERS: ADMIT Internal Medicine; ATTEND Internal Medicine
DX: F10.229 Alcohol dependence with intoxication, unspecified (principal); F10.239 Alcohol dependence with withdrawal, unspecified; I10 Essential (primary) hypertension; F41.9 Anxiety disorder, unspecified; F32.A Depression, unspecified; E66.9 Obesity, unspecified; K21.9 Gastro-esophageal reflux disease without esophagitis; Z79.899 Other long term (current) drug therapy; Z88.8 Allergy status to other drugs, medicaments and biological substances
CPT/HCPCS: 36415; 80053; 80307; 83690; 83735; 85025; 96361; 96365; 96366; 96367; 96375; 96376; 99284; 99285; A9270; G0378; J2405; J2470; J2560; J2765; J3411; J3475; J3490; J7120; 99222; 99232; 99238